=== PATIENT | male | born 1970 | race African-American/Black ===

== ENCOUNTER 2016-10-25 15:29 | Inpatient (IN) | payer OTHER ==
[~2016-10-25] VITALS: Ht 188 cm; Wt 86.6 kg
[~2016-10-25 15:29] MED LIST: SUCR500T PO
[2016-10-25] MEDS ORDERED: ASPIRIN 325MG EC TABLET PO ONE (16:15)
[2016-10-25] MEDS ORDERED: HYDROCODONE/ACETAMINOPHEN 5/325MG TABLET PO ONE (17:00)
[2016-10-25 17:03] LABS: HEMATOCRIT. 33.3 % (42.0-52.0); HEMOGLOBIN. 11.2 g/dL (14.0-18.0); MEAN CORPUSCULAR HEMOGLOBIN 31.5 pg (28.0-32.0); MEAN CORPUSCULAR VOLUME 93.9 fL (80.0-94.0); MEAN PLATELET VOLUME 9.2 fl (7.4-10.4); PLATELET 96 x1000/uL (130-400); RED BLOOD CELL COUNT 3.55 mill/uL (4.7-6.1); RED CELL DISTRIBUTION WIDTH 14.3 % (11.6-14.6)
[2016-10-25 17:05] LABS: CHLORIDE 97 mEq/L (98-107)
[2016-10-25 17:14] LABS: CARBON DIOXIDE 27 mEq/L (21-32)
[2016-10-25 17:18] LABS: TROPONIN I 0.02 ng/mL (0.00-0.04)
[2016-10-25 17:27] LABS: INR 1.1
[2016-10-25 17:37] LABS: PLATELET ESTIMATE DECREASED
[2016-10-25] MEDS ORDERED: MORPHINE SULFATE 4 MG/ML CPJ (NOT FOR IM USE) IV ONE (18:45)
[2016-10-25 21:15] VITALS: BP 182/100
[2016-10-25] MEDS ORDERED: ZOLPIDEM TARTRATE 5MG TABLET PO PRN (21:45)
[2016-10-25] MEDS ORDERED: AZITHROMYCIN 500 MG TABLET PO ONE (21:45)
[2016-10-25] MEDS ORDERED: LISI-604 PO (22:08)
[2016-10-25] MEDS ORDERED: HYDR100T26 PO (22:08)
[2016-10-25] MEDS ORDERED: METO50TA5 PO (22:08)
[2016-10-25] MEDS ORDERED: VARE1TAB21 PO (22:08)
[2016-10-25] MEDS: CLONIDINE 0.1MG TABLET PO PRN (23:56)
[2016-10-25] MEDS: ACETAMINOPHEN 325MG TABLET PO PRN (23:58)
[2016-10-26] VITALS (7 sets, daily range): BP systolic 161–179; BP diastolic 88–104
[2016-10-26] MEDS: AZITHROMYCIN 500 MG in DEXT 5% WATER 250 ML IV SCH (01:06)
[2016-10-26 01:22] LABS: CREATINE KINASE 86 IU/L (39-308); CREATINE KINASE MB FRACTION 0.7 ng/mL (0.5-3.6); TROPONIN I < 0.02 ng/mL (0.00-0.04)
[2016-10-26] MEDS: CEFTRIAXONE 1 G PREMIX 50 ML IV SCH (02:03)
[2016-10-26] MEDS: HYDROMORPHONE HCL/PF 2MG/ML CPJ IV PRN ×3 (05:23→09:38)
[2016-10-26] MEDS ORDERED: METOPROLOL TARTRATE 50MG TABLET PO SCH (09:00)
[2016-10-26] MEDS ORDERED: LISINOPRIL 20MG TABLET PO SCH (09:00)
[2016-10-26] MEDS: LISINOPRIL 20MG TABLET PO SCH ×2 (09:38→17:29)
[2016-10-26] MEDS: HYDRALAZINE HCL 100MG TABLET PO SCH ×3 (09:38→21:04)
[2016-10-26] MEDS: METOPROLOL TARTRATE 50MG TABLET PO SCH ×2 (09:38→21:03)
[2016-10-26] MEDS: ENOXAPARIN 30MG/0.3ML SYR SUBCUT SCH (09:39)
[2016-10-26 11:02] LABS: CREATINE KINASE 64 IU/L (39-308); CREATINE KINASE MB FRACTION 0.7 ng/mL (0.5-3.6); TROPONIN I < 0.02 ng/mL (0.00-0.04)
[2016-10-26 12:37] LABS: HEMATOCRIT. 35.6 % (42.0-52.0); HEMOGLOBIN. 11.8 g/dL (14.0-18.0); MEAN CORPUSCULAR HEMOGLOBIN 31.4 pg (28.0-32.0); MEAN CORPUSCULAR VOLUME 94.9 fL (80.0-94.0); MEAN PLATELET VOLUME 9.5 fl (7.4-10.4); PLATELET 97 x1000/uL (130-400); RED BLOOD CELL COUNT 3.76 mill/uL (4.7-6.1); RED CELL DISTRIBUTION WIDTH 14.2 % (11.6-14.6)
[2016-10-26 12:41] LABS: CARBON DIOXIDE 29 mEq/L (21-32); CHLORIDE 97 mEq/L (98-107)
[2016-10-26] MEDS: CLONIDINE 0.1MG TABLET PO SCH ×2 (14:04→21:04)
[2016-10-26] MEDS: CLONIDINE 0.1MG TABLET PO PRN (15:30)
[2016-10-26 17:57] LABS: PLATELET ESTIMATE DECREASED
[2016-10-26] MEDS: ACETAMINOPHEN 325MG TABLET PO PRN (21:04)
[2016-10-27] VITALS (7 sets, daily range): BP systolic 136–178; BP diastolic 73–95
[2016-10-27] MEDS: AZITHROMYCIN 500 MG in DEXT 5% WATER 250 ML IV SCH (01:19)
[2016-10-27] MEDS: CEFTRIAXONE 1 G PREMIX 50 ML IV SCH (02:41)
[2016-10-27] MEDS: HYDRALAZINE HCL 100MG TABLET PO SCH ×3 (05:25→21:35)
[2016-10-27] MEDS: CLONIDINE 0.1MG TABLET PO SCH ×3 (05:25→21:35)
[2016-10-27] MEDS: ACETAMINOPHEN 325MG TABLET PO PRN (05:26)
[2016-10-27 06:47] LABS: HEMATOCRIT. 30.9 % (42.0-52.0); HEMOGLOBIN. 10.4 g/dL (14.0-18.0); MEAN CORPUSCULAR HEMOGLOBIN 31.5 pg (28.0-32.0); MEAN CORPUSCULAR VOLUME 93.9 fL (80.0-94.0); MEAN PLATELET VOLUME 9.5 fl (7.4-10.4); PLATELET 94 x1000/uL (130-400); RED BLOOD CELL COUNT 3.29 mill/uL (4.7-6.1); RED CELL DISTRIBUTION WIDTH 14.1 % (11.6-14.6)
[2016-10-27 08:48] LABS: CARBON DIOXIDE 27 mEq/L (21-32); CHLORIDE 97 mEq/L (98-107); PHOSPHORUS 4.5 mg/dL (2.5-4.9); TROPONIN I < 0.02 ng/mL (0.00-0.04)
[2016-10-27] MEDS: METOPROLOL TARTRATE 50MG TABLET PO SCH ×2 (09:00→21:35)
[2016-10-27] MEDS: LISINOPRIL 20MG TABLET PO SCH ×2 (09:00→17:22)
[2016-10-27] MEDS: ENOXAPARIN 30MG/0.3ML SYR SUBCUT SCH (09:00)
[2016-10-27] MEDS: HYDROMORPHONE HCL/PF 2MG/ML CPJ IV PRN ×2 (10:26→16:00)
[2016-10-27 13:50] LABS: PLATELET ESTIMATE DECREASED
[2016-10-27] MEDS: CLONIDINE 0.1MG TABLET PO PRN (17:23)
[2016-10-27] MEDS: GUAIFENESIN 600MG ER TABLET PO SCH (21:35)
[2016-10-28] VITALS: BP 156/89
[2016-10-28] MEDS: AZITHROMYCIN 500 MG in DEXT 5% WATER 250 ML IV SCH ×2 (01:34→23:10)
[2016-10-28] MEDS: CEFTRIAXONE 1 G PREMIX 50 ML IV SCH (02:03)
[2016-10-28] MEDS: HYDROMORPHONE HCL/PF 2MG/ML CPJ IV PRN (02:06)
[2016-10-28 04:00] VITALS: BP 149/82
[2016-10-28] MEDS: CLONIDINE 0.1MG TABLET PO SCH ×3 (06:10→22:00)
[2016-10-28] MEDS: HYDRALAZINE HCL 100MG TABLET PO SCH ×3 (06:10→22:00)
[2016-10-28 07:10] LABS: BASOPHILS % 0.6 % (0.0-2.0); EOSINOPHILS % 3.1 % (0.0-5.0); HEMATOCRIT. 31.7 % (42.0-52.0); HEMOGLOBIN. 10.6 g/dL (14.0-18.0); LYMPHOCYTES % 9.1 % (20.0-50.0); MEAN CORPUSCULAR HEMOGLOBIN 31.6 pg (28.0-32.0); MEAN CORPUSCULAR VOLUME 94.5 fL (80.0-94.0); MEAN PLATELET VOLUME 9.3 fl (7.4-10.4); MONOCYTES % 12.5 % (2.0-8.0); NEUTROPHILS % 74.7 % (40.0-76.0); PLATELET 102 x1000/uL (130-400); RED BLOOD CELL COUNT 3.35 mill/uL (4.7-6.1); RED CELL DISTRIBUTION WIDTH 14.2 % (11.6-14.6)
[2016-10-28] MEDS: ENOXAPARIN 30MG/0.3ML SYR SUBCUT SCH ×2 (09:00→09:28)
[2016-10-28] MEDS: GUAIFENESIN 600MG ER TABLET PO SCH ×2 (09:27→21:00)
[2016-10-28] MEDS: ACETAMINOPHEN 325MG TABLET PO PRN (09:27)
[2016-10-28] MEDS: LISINOPRIL 20MG TABLET PO SCH ×2 (09:27→16:49)
[2016-10-28] MEDS: METOPROLOL TARTRATE 50MG TABLET PO SCH ×2 (09:27→21:00)
[2016-10-28 12:00] VITALS: BP 150/89
[2016-10-28] MEDS: IPRATROPIUM/ALBUTEROL 0.5-3(2.5)MG/3ML NEB HHN PRN ×2 (12:29→20:09)
[2016-10-28 16:00] VITALS: BP 147/82
[2016-10-28] MEDS: METRONIDAZOLE 500MG TABLET PO SCH ×2 (16:50→23:10)
[2016-10-28] MEDS ORDERED: VANCOMYCIN 2,000 MG in DEXT 5% WATER 500 ML IV NR (18:00)
[2016-10-28 20:00] VITALS: BP 180/90
[2016-10-28 23:31] VITALS: BP 119/80
[2016-10-28] MEDS ORDERED: DIPHENHYDRAMINE 50MG/ML VIAL IV PRN (23:45)
[2016-10-29] MEDS: CEFTRIAXONE 1 G PREMIX 50 ML IV SCH (02:18)
[2016-10-29] MEDS: HYDROMORPHONE HCL/PF 2MG/ML CPJ IV PRN (02:31)
[2016-10-29 04:00] VITALS: BP 150/87
[2016-10-29] MEDS: CLONIDINE 0.1MG TABLET PO SCH ×3 (04:45→20:17)
[2016-10-29] MEDS: HYDRALAZINE HCL 100MG TABLET PO SCH ×3 (04:45→20:18)
[2016-10-29 08:00] VITALS: BP 158/90
[2016-10-29 08:03] LABS: BASOPHILS % 0.8 % (0.0-2.0); EOSINOPHILS % 6.2 % (0.0-5.0); HEMATOCRIT. 29.1 % (42.0-52.0); HEMOGLOBIN. 9.8 g/dL (14.0-18.0); MEAN CORPUSCULAR HEMOGLOBIN 31.5 pg (28.0-32.0); MEAN CORPUSCULAR VOLUME 93.3 fL (80.0-94.0); MEAN PLATELET VOLUME 9.5 fl (7.4-10.4); MONOCYTES % 11.2 % (2.0-8.0); NEUTROPHILS % 68.8 % (40.0-76.0); PLATELET 99 x1000/uL (130-400); RED BLOOD CELL COUNT 3.12 mill/uL (4.7-6.1); RED CELL DISTRIBUTION WIDTH 13.9 % (11.6-14.6)
[2016-10-29] MEDS: ENOXAPARIN 30MG/0.3ML SYR SUBCUT SCH (09:00)
[2016-10-29] MEDS: ACETAMINOPHEN 325MG TABLET PO PRN (09:27)
[2016-10-29] MEDS: GUAIFENESIN 600MG ER TABLET PO SCH ×2 (09:27→20:18)
[2016-10-29] MEDS: METRONIDAZOLE 500MG TABLET PO SCH ×2 (09:27→16:34)
[2016-10-29] MEDS: LISINOPRIL 20MG TABLET PO SCH ×2 (09:27→16:34)
[2016-10-29] MEDS: METOPROLOL TARTRATE 50MG TABLET PO SCH ×2 (09:28→20:17)
[2016-10-29 12:00] VITALS: BP 158/89
[2016-10-29 16:00] VITALS: BP 173/93
[2016-10-29] MEDS: IPRATROPIUM/ALBUTEROL 0.5-3(2.5)MG/3ML NEB HHN PRN (17:45)
[2016-10-29] MEDS: FLUCONAZOLE 200 MG/100ML BAG 100 ML IV SCH (18:14)
[2016-10-29 20:00] VITALS: BP 172/90
[2016-10-30] MEDS: METRONIDAZOLE 500MG TABLET PO SCH ×3 (01:37→16:23)
[2016-10-30] MEDS: CEFTRIAXONE 1 G PREMIX 50 ML IV SCH (01:37)
[2016-10-30] MEDS: IPRATROPIUM/ALBUTEROL 0.5-3(2.5)MG/3ML NEB HHN PRN (02:41)
[2016-10-30] MEDS: HYDROMORPHONE HCL/PF 2MG/ML CPJ IV PRN ×2 (03:45→16:29)
[2016-10-30] MEDS: CLONIDINE 0.1MG TABLET PO SCH ×2 (06:00→14:00)
[2016-10-30] MEDS: HYDRALAZINE HCL 100MG TABLET PO SCH ×3 (06:00→21:58)
[2016-10-30 07:32] LABS: BASOPHILS % 0.6 % (0.0-2.0); EOSINOPHILS % 5.1 % (0.0-5.0); HEMOGLOBIN. 10.8 g/dL (14.0-18.0); LYMPHOCYTES % 10.1 % (20.0-50.0); MEAN CORPUSCULAR HEMOGLOBIN 31.1 pg (28.0-32.0); MEAN CORPUSCULAR VOLUME 92.1 fL (80.0-94.0); MEAN PLATELET VOLUME 9.3 fl (7.4-10.4); MONOCYTES % 10.1 % (2.0-8.0); NEUTROPHILS % 74.1 % (40.0-76.0); PLATELET 131 x1000/uL (130-400); RED BLOOD CELL COUNT 3.48 mill/uL (4.7-6.1)
[2016-10-30 08:00] VITALS: BP 166/94
[2016-10-30] MEDS: METOPROLOL TARTRATE 50MG TABLET PO SCH ×2 (09:25→21:58)
[2016-10-30] MEDS: LISINOPRIL 20MG TABLET PO SCH ×2 (09:25→16:25)
[2016-10-30] MEDS: GUAIFENESIN 600MG ER TABLET PO SCH ×2 (09:26→21:58)
[2016-10-30] MEDS: ENOXAPARIN 30MG/0.3ML SYR SUBCUT SCH (09:27)
[2016-10-30] MEDS: AMLODIPINE 5MG TABLET PO SCH (09:30)
[2016-10-30] MEDS ORDERED: FUROSEMIDE 40MG/4ML VIAL IVP NR (10:45)
[2016-10-30] MEDS ORDERED: ALPRAZOLAM 0.5 MG TABLET PO PRN (10:45)
[2016-10-30] MEDS ORDERED: VANCOMYCIN 1 G PREMIX 200 ML IV SCH (11:00)
[2016-10-30 12:00] VITALS: BP 148/87
[2016-10-30 16:00] VITALS: BP 153/89
[2016-10-30] MEDS: FLUCONAZOLE 200 MG/100ML BAG 100 ML IV SCH (16:25)
[2016-10-30 20:00] VITALS: BP 150/91
[2016-10-30] MEDS: ACETAMINOPHEN 325MG TABLET PO PRN (22:00)
[2016-10-31] VITALS: BP 160/88
[2016-10-31] MEDS: METRONIDAZOLE 500MG TABLET PO SCH ×4 (00:02→23:57)
[2016-10-31] MEDS: CEFTRIAXONE 1 G PREMIX 50 ML IV SCH (02:05)
[2016-10-31 04:00] VITALS: BP 183/103
[2016-10-31] MEDS: CLONIDINE 0.1MG TABLET PO PRN (04:43)
[2016-10-31] MEDS: CLONIDINE 0.1MG TABLET PO SCH ×5 (06:00→21:35)
[2016-10-31 06:59] LABS: BASOPHILS % 1.1 % (0.0-2.0); EOSINOPHILS % 7.3 % (0.0-5.0); HEMOGLOBIN. 10.8 g/dL (14.0-18.0); LYMPHOCYTES % 10.6 % (20.0-50.0); MEAN CORPUSCULAR HEMOGLOBIN 31.4 pg (28.0-32.0); MEAN CORPUSCULAR VOLUME 92.9 fL (80.0-94.0); MEAN PLATELET VOLUME 9.1 fl (7.4-10.4); PLATELET 158 x1000/uL (130-400); RED BLOOD CELL COUNT 3.45 mill/uL (4.7-6.1); RED CELL DISTRIBUTION WIDTH 13.9 % (11.6-14.6)
[2016-10-31] MEDS: HYDRALAZINE HCL 100MG TABLET PO SCH ×3 (07:02→21:36)
[2016-10-31 08:00] VITALS: BP 163/90
[2016-10-31] MEDS: GUAIFENESIN 600MG ER TABLET PO SCH ×2 (08:56→21:36)
[2016-10-31] MEDS: METOPROLOL TARTRATE 50MG TABLET PO SCH ×2 (08:56→21:35)
[2016-10-31] MEDS: FUROSEMIDE 40MG/4ML VIAL IVP SCH ×2 (08:57→11:46)
[2016-10-31] MEDS: LISINOPRIL 20MG TABLET PO SCH ×2 (08:57→17:24)
[2016-10-31] MEDS: AMLODIPINE 5MG TABLET PO SCH (08:57)
[2016-10-31] MEDS: ENOXAPARIN 30MG/0.3ML SYR SUBCUT SCH (08:58)
[2016-10-31] MEDS ORDERED: FUROSEMIDE 40MG/4ML VIAL IVP SCH (09:45)
[2016-10-31 12:00] VITALS: BP 149/83
[2016-10-31 16:00] VITALS: BP 184/102
[2016-10-31] MEDS: FLUCONAZOLE 200 MG/100ML BAG 100 ML IV SCH (17:25)
[2016-10-31 20:00] VITALS: BP 168/102
[2016-11-01] VITALS: BP 135/84
[2016-11-01] MEDS: CEFTRIAXONE 1 G PREMIX 50 ML IV SCH (02:05)
[2016-11-01] MEDS: HYDROCODONE/ACETAMINOPHEN 5/325MG TABLET PO PRN ×2 (03:05→11:29)
[2016-11-01 04:00] VITALS: BP 160/96
[2016-11-01 05:38] LABS: BASOPHILS % 1.2 % (0.0-2.0); EOSINOPHILS % 8.4 % (0.0-5.0); HEMATOCRIT. 31.3 % (42.0-52.0); HEMOGLOBIN. 10.6 g/dL (14.0-18.0); LYMPHOCYTES % 14.6 % (20.0-50.0); MEAN CORPUSCULAR HEMOGLOBIN 31.4 pg (28.0-32.0); MEAN CORPUSCULAR VOLUME 93.2 fL (80.0-94.0); MEAN PLATELET VOLUME 8.6 fl (7.4-10.4); MONOCYTES % 11.4 % (2.0-8.0); NEUTROPHILS % 64.4 % (40.0-76.0); PLATELET 184 x1000/uL (130-400); RED BLOOD CELL COUNT 3.36 mill/uL (4.7-6.1); RED CELL DISTRIBUTION WIDTH 13.9 % (11.6-14.6)
[2016-11-01] MEDS: CLONIDINE 0.1MG TABLET PO SCH ×3 (06:00→21:33)
[2016-11-01] MEDS: HYDRALAZINE HCL 100MG TABLET PO SCH ×3 (06:00→21:33)
[2016-11-01 08:00] VITALS: BP 169/88
[2016-11-01] MEDS: METOPROLOL TARTRATE 50MG TABLET PO SCH ×2 (09:00→21:33)
[2016-11-01] MEDS: AMLODIPINE 5MG TABLET PO SCH ×2 (09:00→19:05)
[2016-11-01] MEDS ORDERED: FUROSEMIDE 40MG/4ML VIAL IVP SCH (09:00)
[2016-11-01] MEDS: LISINOPRIL 20MG TABLET PO SCH ×2 (09:00→19:04)
[2016-11-01] MEDS ORDERED: ENOXAPARIN 40MG/0.4ML SYR SUBCUT SCH (09:00)
[2016-11-01] MEDS: FUROSEMIDE 40MG/4ML VIAL IVP SCH (09:43)
[2016-11-01] MEDS: METRONIDAZOLE 500MG TABLET PO SCH ×2 (09:44→15:02)
[2016-11-01] MEDS: GUAIFENESIN 600MG ER TABLET PO SCH ×2 (09:44→21:33)
[2016-11-01] MEDS ORDERED: CLONIDINE 0.2MG TABLET PO PRN (11:30)
[2016-11-01] MEDS ORDERED: CLONIDINE 0.1MG TABLET PO PRN (11:30)
[2016-11-01 12:00] VITALS: BP 170/80
[2016-11-01] MEDS: IPRATROPIUM/ALBUTEROL 0.5-3(2.5)MG/3ML NEB HHN PRN (14:07)
[2016-11-01] MEDS: ACETAMINOPHEN 325MG TABLET PO PRN (15:02)
[2016-11-01] MEDS: FLUCONAZOLE 200 MG/100ML BAG 100 ML IV SCH (15:03)
[2016-11-01 16:00] VITALS: BP 136/78
[2016-11-01] MEDS ORDERED: MORPHINE SULFATE 4 MG/ML CPJ (NOT FOR IM USE) IV PRN (19:45)
[2016-11-01 20:08] VITALS: BP 148/88
[2016-11-02] VITALS: BP 151/92
[2016-11-02] MEDS: METRONIDAZOLE 500MG TABLET PO SCH ×2 (00:09→10:02)
[2016-11-02] MEDS: CEFTRIAXONE 1 G PREMIX 50 ML IV SCH (01:59)
[2016-11-02 04:00] VITALS: BP 145/97
[2016-11-02] MEDS: HYDRALAZINE HCL 100MG TABLET PO SCH ×2 (06:14→14:48)
[2016-11-02] MEDS: CLONIDINE 0.1MG TABLET PO SCH ×2 (06:14→14:48)
[2016-11-02 07:45] VITALS: BP 141/85
[2016-11-02] MEDS: FUROSEMIDE 40MG/4ML VIAL IVP SCH (09:00)
[2016-11-02 09:55] VITALS: BP 139/83
[2016-11-02] MEDS: GUAIFENESIN 600MG ER TABLET PO SCH (10:02)
[2016-11-02] MEDS: AMLODIPINE 5MG TABLET PO SCH (10:03)
[2016-11-02] MEDS: LISINOPRIL 20MG TABLET PO SCH (10:03)
[2016-11-02] MEDS: METOPROLOL TARTRATE 50MG TABLET PO SCH (10:04)
[2016-11-02 12:00] VITALS: BP 149/87
[2016-11-02] MEDS ORDERED: SODIUM BICARBONATE 4% (2.4MEQ) 5ML VIAL IV ONE (14:11)
[2016-11-02 15:04] VITALS: BP 156/91
[2016-11-04 15:12] LABS: HISTOPLASMA ABS QT DID Negative (Neg:<1:1)
== END 2016-11-02 15:33 | disposition home or self-care (01) | DRG 871 ==
LOC: ER 16:16 → 7WST 19:00 → EDBEDREQ 19:02 → EDBEDREQSVC 19:02 → CANRESERV 19:23 → EDBEDREQSVC 19:23 → ENRESERV 19:23 → EDBEDREQSVC 19:24 → ENRESERV 19:34
PROVIDERS: ADMIT Internal Medicine Nephrology; ATTEND Internal Medicine Nephrology
PROC: 5A1D60Z (ICD-10-PCS; principal; 2016-10-26)
PROC: 0W993ZZ Drainage of Right Pleural Cavity, Percutaneous Approach (ICD-10-PCS; 2016-11-02)
DX: A41.9 Sepsis, unspecified organism (principal); J96.00 Acute respiratory failure, unspecified whether with hypoxia or hypercapnia; I13.2 Hypertensive heart and chronic kidney disease with heart failure and with stage 5 chronic kidney disease, or end stage renal disease; J90 Pleural effusion, not elsewhere classified; N18.6 End stage renal disease; I42.9 Cardiomyopathy, unspecified; J18.1 Lobar pneumonia, unspecified organism; E11.22 Type 2 diabetes mellitus with diabetic chronic kidney disease; F17.210 Nicotine dependence, cigarettes, uncomplicated; I50.9 Heart failure, unspecified; Z99.2 Dependence on renal dialysis; Z79.899 Other long term (current) drug therapy
CPT/HCPCS: 32555; 36415; 71010; 71020; 71250; 76604; 80048; 80053; 80202; 82550; 82553; 82945; 83036; 83615; 83735; 83880; 84100; 84157; 84484; 85025; 85610; 85651; 86635; 86698; 86703; 87040; 87070; 87102; 87106; 87116; 87205; 87804; 89050; 93005; 93306; 94640; 94664; 96374; 99285; J0456; J0696; J1170; J1200; J1450; J1650; J1940; J2270; J3370; J3490; J7030; J7040; J7050; J7060; J7620

== ENCOUNTER 2017-01-29 13:27 | Emergency (ER) | payer MEDICARE, OTHER ==
[~2017-01-29] VITALS: Ht 188 cm; Wt 89.0 kg
[~2017-01-29 13:27] MED LIST changes: +HYDR100T26 PO; +LISI-604 PO; +METO-539 PO; +VARE1TAB21 PO
[2017-01-29 14:24] LABS: BASOPHILS % 1.6 % (0.0-2.0); EOSINOPHILS % 9.5 % (0.0-5.0); HEMATOCRIT. 36.4 % (42.0-52.0); HEMOGLOBIN. 12.6 g/dL (14.0-18.0); LYMPHOCYTES % 30.5 % (20.0-50.0); MEAN CORPUSCULAR HEMOGLOBIN 33.2 pg (28.0-32.0); MEAN CORPUSCULAR VOLUME 95.9 fL (80.0-94.0); MEAN PLATELET VOLUME 8.7 fl (7.4-10.4); MONOCYTES % 7.7 % (2.0-8.0); NEUTROPHILS % 50.7 % (40.0-76.0); PLATELET 159 x1000/uL (130-400); RED CELL DISTRIBUTION WIDTH 13.3 % (11.6-14.6)
[2017-01-29 14:26] LABS: PROTHROMBIN TIME 10.7 sec (9.4-11.6)
[2017-01-29 14:39] LABS: CARBON DIOXIDE 31 mEq/L (21-32); CHLORIDE 99 mEq/L (98-107); TROPONIN I 0.02 ng/mL (0.00-0.04)
[2017-01-29] MEDS ORDERED: IOHEXOL-350 100 ML BOTTLE ONE (15:03)
[2017-01-29 16:20] VITALS: BP 145/68
== END 2017-01-29 16:42 | disposition home or self-care (01) ==
LOC: ER 14:10
DX: R06.02 Shortness of breath (principal); I12.0 Hypertensive chronic kidney disease with stage 5 chronic kidney disease or end stage renal disease; N18.6 End stage renal disease; Z87.891 Personal history of nicotine dependence; Z99.2 Dependence on renal dialysis; Z87.01 Personal history of pneumonia (recurrent)
CPT/HCPCS: 36415; 71010; 71275; 80053; 83735; 83880; 84484; 85025; 85610; 93005; 99285; Q9967

== ENCOUNTER 2017-05-13 18:07 | Inpatient (IN) | payer BC, MEDICARE, OTHER ==
[~2017-05-13] VITALS: Ht 188 cm; Wt 95.3 kg
[2017-05-13 19:31] LABS: PROTHROMBIN TIME 10.7 sec (9.4-11.6)
[2017-05-13 19:32] LABS: BASOPHILS % 1.1 % (0.0-2.0); CHLORIDE 103 mEq/L (98-107); EOSINOPHILS % 6.6 % (0.0-5.0); HEMATOCRIT. 35.6 % (42.0-52.0); HEMOGLOBIN. 12.3 g/dL (14.0-18.0); MEAN CORPUSCULAR HEMOGLOBIN 33.4 pg (28.0-32.0); MEAN CORPUSCULAR VOLUME 96.9 fL (80.0-94.0); MEAN PLATELET VOLUME 7.7 fl (7.4-10.4); MONOCYTES % 7.5 % (2.0-8.0); NEUTROPHILS % 63.8 % (40.0-76.0); PLATELET 151 x1000/uL (130-400); RED BLOOD CELL COUNT 3.68 mill/uL (4.7-6.1); RED CELL DISTRIBUTION WIDTH 14.9 % (11.6-14.6)
[2017-05-13 23:30] VITALS: BP 134/81
[2017-05-13] MEDS ORDERED: ONDANSETRON HCL 4MG/2ML VIAL IV PRN (23:30)
[2017-05-13] MEDS ORDERED: ALPRAZOLAM 0.5 MG TABLET PO PRN (23:30)
[2017-05-13] MEDS ORDERED: ACETAMINOPHEN 325MG TABLET PO PRN (23:30)
[2017-05-13] MEDS ORDERED: HYDROMORPHONE HCL/PF 2MG/ML CPJ IV PRN (23:30)
[2017-05-13] MEDS ORDERED: LORAZEPAM 0.5MG TABLET PO PRN (23:30)
[2017-05-13 23:50] VITALS: BP 133/81
[2017-05-14] MEDS ORDERED: CLON1PAT11 TD (01:17)
[2017-05-14 04:00] VITALS: BP 143/83
[2017-05-14 07:46] VITALS: BP 120/63
[2017-05-14] MEDS ORDERED: ENOXAPARIN 30MG/0.3ML SYR SUBCUT SCH (09:00)
[2017-05-14 09:36] VITALS: BP 120/63
[2017-05-20] MEDS ORDERED: CLONIDINE HCL 0.2MG/24HR PATCH TD SCH (09:00)
== END 2017-05-14 10:31 | disposition home or self-care (01) | DRG 291 ==
LOC: ER 18:33 → 8WST 21:29 → EDBEDREQ 21:40 → EDBEDREQTM 21:40 → ENRESERV 22:24
PROVIDERS: ADMIT Internal Medicine Nephrology; ATTEND Internal Medicine Nephrology
PROC: 5A1D70Z Performance of Urinary Filtration, Intermittent, Less than 6 Hours Per Day (ICD-10-PCS; principal; 2017-05-13)
DX: I13.2 Hypertensive heart and chronic kidney disease with heart failure and with stage 5 chronic kidney disease, or end stage renal disease (principal); I50.31 Acute diastolic (congestive) heart failure; E44.1 Mild protein-calorie malnutrition; N18.6 End stage renal disease; F41.1 Generalized anxiety disorder; J44.9 Chronic obstructive pulmonary disease, unspecified; Z99.2 Dependence on renal dialysis; Z79.899 Other long term (current) drug therapy; Z68.27 Body mass index [BMI] 27.0-27.9, adult
CPT/HCPCS: 36415; 71045; 80053; 83880; 84484; 85025; 85610; 93005; J1650

== ENCOUNTER 2017-09-22 23:06 | Inpatient (IN) | payer OTHER ==
[~2017-09-22] VITALS: Ht 370.8 cm; Wt 100.7 kg
[~2017-09-22 23:06] MED LIST changes: +CLON1PAT11 TD
[2017-09-23 01:22] LABS: BASOPHILS % 1.1 % (0.0-2.0); HEMATOCRIT. 38.1 % (42.0-52.0); HEMOGLOBIN. 12.8 g/dL (14.0-18.0); MEAN CORPUSCULAR HEMOGLOBIN 33.8 pg (28.0-32.0); MEAN CORPUSCULAR VOLUME 100.3 fL (80.0-94.0); MEAN PLATELET VOLUME 7.9 fl (7.4-10.4); MONOCYTES % 7.8 % (2.0-8.0); NEUTROPHILS % 54.1 % (40.0-76.0); PLATELET 124 x1000/uL (130-400); RED BLOOD CELL COUNT 3.79 mill/uL (4.7-6.1); RED CELL DISTRIBUTION WIDTH 14.3 % (11.6-14.6)
[2017-09-23 01:24] LABS: CHLORIDE 99 mEq/L (98-107)
[2017-09-23 01:26] LABS: PROTHROMBIN TIME 10.7 sec (9.4-11.6)
[2017-09-23] MEDS ORDERED: MORPHINE SULFATE 4 MG/ML CPJ (NOT FOR IM USE) IV PRN (09:00)
[2017-09-23] MEDS ORDERED: CLONIDINE 0.1MG TABLET PO PRN (09:00)
[2017-09-23] MEDS ORDERED: METOPROLOL TARTRATE 50MG TABLET PO SCH (09:00)
[2017-09-23] MEDS ORDERED: HYDROCODONE/ACETAMINOPHEN 5/325MG TABLET PO PRN (09:00)
[2017-09-23] MEDS ORDERED: LISINOPRIL 20MG TABLET PO SCH (09:00)
[2017-09-23] MEDS ORDERED: DIPHENHYDRAMINE 50MG/ML VIAL IV PRN (09:00)
[2017-09-23 09:37] VITALS: BP 142/85
[2017-09-23 12:23] VITALS: BP 142/85
[2017-09-23 12:55] LABS: HEMATOCRIT 40.4 % (42.0-52.0); HEMOGLOBIN 13.6 g/dL (14.0-18.0)
[2017-09-23] MEDS ORDERED: HYDRALAZINE HCL 100MG TABLET PO SCH (14:00)
== END 2017-09-23 14:01 | disposition home or self-care (01) | DRG 314 ==
LOC: ER 23:06 → 6WST 09-23 01:10 → ENRESERV 09-23 07:16
PROVIDERS: ADMIT Internal Medicine Nephrology; ATTEND Internal Medicine Nephrology
DX: T82.838A Hemorrhage due to vascular prosthetic devices, implants and grafts, initial encounter (principal); N18.6 End stage renal disease; I12.0 Hypertensive chronic kidney disease with stage 5 chronic kidney disease or end stage renal disease; Y84.1 Kidney dialysis as the cause of abnormal reaction of the patient, or of later complication, without mention of misadventure at the time of the procedure; D64.9 Anemia, unspecified; I25.10 Atherosclerotic heart disease of native coronary artery without angina pectoris; J44.9 Chronic obstructive pulmonary disease, unspecified; Z99.2 Dependence on renal dialysis; Z79.899 Other long term (current) drug therapy; Y92.89 Other specified places as the place of occurrence of the external cause
CPT/HCPCS: 36415; 80053; 85014; 85018; 85025; 85610; 99285

== ENCOUNTER 2018-04-24 19:12 | Inpatient (IN) | payer MEDICARE, OTHER ==
[~2018-04-24] VITALS: Ht 188 cm; Wt 104.3 kg
[~2018-04-24 19:12] MED LIST changes: -CLON1PAT11 TD; -LISI-604 PO; -METO-539 PO
[2018-04-24] MEDS ORDERED: ASPIRIN 81MG TABLET PO ONE (23:30)
[2018-04-25 00:13] LABS: CHLORIDE 104 mEq/L (98-107)
[2018-04-25] MEDS ORDERED: MAGNESIUM/ALUMINUM HYDROXIDE/SIMETHICONE 30ML UDC PO PRN (00:15)
[2018-04-25] MEDS ORDERED: CLONIDINE 0.1MG TABLET PO PRN (00:15)
[2018-04-25] MEDS ORDERED: MORPHINE SULFATE 4 MG/ML CPJ (NOT FOR IM USE) IV PRN (00:15)
[2018-04-25] MEDS ORDERED: IPRATROPIUM/ALBUTEROL 0.5-3(2.5)MG/3ML NEB INH PRN (00:15)
[2018-04-25] MEDS ORDERED: HYDROCODONE/ACETAMINOPHEN 5/325MG TABLET PO PRN (00:15)
[2018-04-25 00:16] LABS: EOSINOPHILS % 8.6 % (0.0-5.0); HEMATOCRIT. 31.8 % (42.0-52.0); HEMOGLOBIN. 10.5 g/dL (14.0-18.0); LYMPHOCYTES % 19.2 % (20.0-50.0); MEAN CORPUSCULAR HEMOGLOBIN 31.4 pg (28.0-32.0); MEAN PLATELET VOLUME 7.5 fl (7.4-10.4); MONOCYTES % 8.1 % (2.0-8.0); NEUTROPHILS % 63.1 % (40.0-76.0); PLATELET 151 x1000/uL (130-400); RED BLOOD CELL COUNT 3.34 mill/uL (4.7-6.1); RED CELL DISTRIBUTION WIDTH 16.1 % (11.6-14.6)
[2018-04-25 09:48] VITALS: BP 153/84
[2018-04-25] MEDS ORDERED: ESCI20TA36 PO (11:07)
[2018-04-25] MEDS ORDERED: SEVE800T8 PO (11:07)
[2018-04-25] MEDS ORDERED: MINO2.5T2 PO (11:07)
[2018-04-25] MEDS ORDERED: DIAZ5TAB4 PO (11:07)
[2018-04-25] MEDS ORDERED: CLON0.1T PO (11:07)
[2018-04-25] MEDS ORDERED: HYDR-4001 PO (11:07)
[2018-04-25] MEDS ORDERED: HYDR-4135 PO (11:07)
[2018-04-25 13:12] VITALS: BP 153/87
[2018-04-25] MEDS ORDERED: ASPIRIN 81MG EC TABLET PO SCH (13:30)
[2018-04-25] MEDS ORDERED: METHYLPREDNISOLONE SOD SUCC 125 MG/2 ML VIAL IV SCH (14:00)
[2018-04-25] MEDS ORDERED: CEFTRIAXONE 1 G PREMIX 50 ML IV SCH (14:30)
[2018-04-25 16:00] VITALS: BP 170/92
[2018-04-25] MEDS: FOLIC ACID 1MG TABLET PO SCH (16:18)
[2018-04-25] MEDS: CEFTRIAXONE 1,000 MG in DEXTROSE 5% WATER 50 ML IV SCH (16:19)
[2018-04-25] MEDS: ENOXAPARIN 30MG/0.3ML SYR SUBCUT SCH (16:19)
[2018-04-25] MEDS: CLONIDINE 0.1MG TABLET PO SCH ×2 (16:19→22:16)
[2018-04-25] MEDS: AZITHROMYCIN 500 MG in DEXT 5% WATER 250 ML IV SCH (16:20)
[2018-04-25] MEDS: METHYLPREDNISOLONE SOD SUCC 125 MG/2 ML VIAL IV SCH (20:34)
[2018-04-26] VITALS: BP 179/100
[2018-04-26] MEDS: IPRATROPIUM/ALBUTEROL 0.5-3(2.5)MG/3ML NEB HHN SCH ×6 (01:00→21:07)
[2018-04-26] MEDS: METHYLPREDNISOLONE SOD SUCC 125 MG/2 ML VIAL IV SCH ×4 (01:43→20:46)
[2018-04-26 04:00] VITALS: BP 171/100
[2018-04-26] MEDS: CLONIDINE 0.1MG TABLET PO SCH ×3 (05:21→21:36)
[2018-04-26] MEDS: LORAZEPAM 2MG/ML CPJ IV PRN (06:42)
[2018-04-26 08:00] VITALS: BP 157/78
[2018-04-26] MEDS: ASPIRIN 325MG EC TABLET PO SCH (08:55)
[2018-04-26] MEDS: FOLIC ACID 1MG TABLET PO SCH (08:56)
[2018-04-26 12:46] LABS: HEMATOCRIT. 29.2 % (42.0-52.0); HEMOGLOBIN. 9.7 g/dL (14.0-18.0); MEAN CORPUSCULAR HEMOGLOBIN 31.6 pg (28.0-32.0); MEAN CORPUSCULAR VOLUME 94.8 fL (80.0-94.0); PLATELET 148 x1000/uL (130-400); RED BLOOD CELL COUNT 3.08 mill/uL (4.7-6.1); RED CELL DISTRIBUTION WIDTH 15.4 % (11.6-14.6)
[2018-04-26 12:51] LABS: PHOSPHORUS 5.6 mg/dL (2.5-4.9)
[2018-04-26 13:15] LABS: PLATELET ESTIMATE NORMAL
[2018-04-26 16:00] VITALS: BP 140/70
[2018-04-26] MEDS: CEFTRIAXONE 1,000 MG in DEXTROSE 5% WATER 50 ML IV SCH (17:06)
[2018-04-26] MEDS: ENOXAPARIN 30MG/0.3ML SYR SUBCUT SCH (17:06)
[2018-04-26] MEDS: AZITHROMYCIN 500 MG in DEXT 5% WATER 250 ML IV SCH (18:37)
[2018-04-26 20:00] VITALS: BP 152/90
[2018-04-27] VITALS: BP 140/86
[2018-04-27] MEDS: IPRATROPIUM/ALBUTEROL 0.5-3(2.5)MG/3ML NEB HHN SCH ×4 (00:55→22:06)
[2018-04-27] MEDS: METHYLPREDNISOLONE SOD SUCC 125 MG/2 ML VIAL IV SCH ×3 (02:28→22:06)
[2018-04-27 04:00] VITALS: BP 164/99
[2018-04-27] MEDS: CLONIDINE 0.1MG TABLET PO SCH ×3 (05:02→21:30)
[2018-04-27 08:00] VITALS: BP 172/100
[2018-04-27 08:10] LABS: HEMATOCRIT. 30.4 % (42.0-52.0); HEMOGLOBIN. 10.1 g/dL (14.0-18.0); MEAN CORPUSCULAR HEMOGLOBIN 31.8 pg (28.0-32.0); MEAN CORPUSCULAR VOLUME 95.9 fL (80.0-94.0); MEAN PLATELET VOLUME 8.3 fl (7.4-10.4); PLATELET 126 x1000/uL (130-400); RED BLOOD CELL COUNT 3.17 mill/uL (4.7-6.1)
[2018-04-27] MEDS: ASPIRIN 325MG EC TABLET PO SCH (09:41)
[2018-04-27] MEDS: FOLIC ACID 1MG TABLET PO SCH (09:41)
[2018-04-27] MEDS: NICOTINE 14MG PATCH TD SCH (09:43)
[2018-04-27 11:54] VITALS: BP 153/85
[2018-04-27 12:19] LABS: PLATELET ESTIMATE SLIGHTLY DECREASED
[2018-04-27] MEDS: HYDRALAZINE HCL 25MG TABLET PO SCH ×2 (12:24→22:05)
[2018-04-27] MEDS: ENOXAPARIN 30MG/0.3ML SYR SUBCUT SCH (13:05)
[2018-04-27 16:00] VITALS: BP 156/87
[2018-04-27] MEDS: LORAZEPAM 2MG/ML CPJ IV PRN (16:01)
[2018-04-27 20:00] VITALS: BP 135/84
[2018-04-27] MEDS: CEFTRIAXONE 1,000 MG in DEXTROSE 5% WATER 50 ML IV SCH (21:29)
[2018-04-27] MEDS: AZITHROMYCIN 500 MG in DEXT 5% WATER 250 ML IV SCH (22:07)
[2018-04-28] VITALS: BP 129/72
[2018-04-28] MEDS: LORAZEPAM 2MG/ML CPJ IV PRN ×2 (00:09→08:45)
[2018-04-28] MEDS: IPRATROPIUM/ALBUTEROL 0.5-3(2.5)MG/3ML NEB HHN SCH ×5 (01:45→14:18)
[2018-04-28 04:00] VITALS: BP 168/98
[2018-04-28] MEDS: METHYLPREDNISOLONE SOD SUCC 125 MG/2 ML VIAL IV SCH (05:37)
[2018-04-28] MEDS: HYDRALAZINE HCL 25MG TABLET PO SCH (05:38)
[2018-04-28] MEDS: CLONIDINE 0.1MG TABLET PO SCH (05:38)
[2018-04-28 06:25] LABS: HEMATOCRIT. 30.6 % (42.0-52.0); MEAN CORPUSCULAR HEMOGLOBIN 31.2 pg (28.0-32.0); MEAN CORPUSCULAR VOLUME 95.2 fL (80.0-94.0); MEAN PLATELET VOLUME 8.5 fl (7.4-10.4); PLATELET 121 x1000/uL (130-400); RED BLOOD CELL COUNT 3.21 mill/uL (4.7-6.1); RED CELL DISTRIBUTION WIDTH 15.9 % (11.6-14.6)
[2018-04-28 08:00] VITALS: BP 161/95
[2018-04-28] MEDS: ASPIRIN 325MG EC TABLET PO SCH (09:00)
[2018-04-28] MEDS ORDERED: AZITHROMYCIN 500 MG TABLET PO SCH (09:00)
[2018-04-28] MEDS: NICOTINE 14MG PATCH TD SCH (09:00)
[2018-04-28] MEDS: FOLIC ACID 1MG TABLET PO SCH (09:00)
[2018-04-28 12:00] VITALS: BP 160/95
[2018-04-28 13:33] VITALS: BP 148/76
[2018-04-29 06:30] LABS: PLATELET ESTIMATE DECREASED
== END 2018-04-28 15:10 | disposition home or self-care (01) | DRG 291 ==
LOC: ER 19:12 → 8WST 04-25 02:19 → EDBEDREQ 04-25 02:22 → EDBEDREQTM 04-25 02:22 → ENRESERV 04-25 08:06
PROVIDERS: ADMIT Internal Medicine Nephrology; ATTEND Internal Medicine Nephrology
PROC: 5A1D70Z Performance of Urinary Filtration, Intermittent, Less than 6 Hours Per Day (ICD-10-PCS; principal; 2018-04-25)
PROC: 5A1D70Z Performance of Urinary Filtration, Intermittent, Less than 6 Hours Per Day (ICD-10-PCS; 2018-04-27)
PROC: 5A1D70Z Performance of Urinary Filtration, Intermittent, Less than 6 Hours Per Day (ICD-10-PCS; 2018-04-28)
DX: I13.2 Hypertensive heart and chronic kidney disease with heart failure and with stage 5 chronic kidney disease, or end stage renal disease (principal); I50.43 Acute on chronic combined systolic (congestive) and diastolic (congestive) heart failure; N18.6 End stage renal disease; J44.1 Chronic obstructive pulmonary disease with (acute) exacerbation; J44.0 Chronic obstructive pulmonary disease with (acute) lower respiratory infection; J20.9 Acute bronchitis, unspecified; I45.81 Long QT syndrome; D63.8 Anemia in other chronic diseases classified elsewhere; E11.22 Type 2 diabetes mellitus with diabetic chronic kidney disease; E78.00 Pure hypercholesterolemia, unspecified; F32.9 Major depressive disorder, single episode, unspecified; F17.210 Nicotine dependence, cigarettes, uncomplicated; F41.9 Anxiety disorder, unspecified; I08.1 Rheumatic disorders of both mitral and tricuspid valves; I25.10 Atherosclerotic heart disease of native coronary artery without angina pectoris; Z91.19 Patient's noncompliance with other medical treatment and regimen; Z99.2 Dependence on renal dialysis; Z79.899 Other long term (current) drug therapy; Z71.6 Tobacco abuse counseling
CPT/HCPCS: 36415; 71045; 80048; 82962; 83735; 84100; 84484; 93005; 93306; 94640; 96372; 99285; C1893; J0456; J0696; J1650; J2060; J2930; J7050; J7060; J7620

== ENCOUNTER 2019-05-14 16:04 | Inpatient (IN) | payer BC, MEDICARE, OTHER ==
[~2019-05-14] VITALS: Ht 188 cm; Wt 102.7 kg
[~2019-05-14 16:04] MED LIST changes: +CLON0.1T PO; +DIAZ5TAB4 PO; +ESCI20TA43 PO; +HYDR-4001 PO; +HYDR-4135 PO; -HYDR100T26 PO; +MINO2.5T2 PO; +SEVE800T8 PO; -SUCR500T PO; -VARE1TAB21 PO
[2019-05-14] MEDS ORDERED: ASPIRIN 81MG TABLET PO ONE (17:00)
[2019-05-14] MEDS ORDERED: ALPRAZOLAM 0.5 MG TABLET PO ONE (17:00)
[2019-05-14 17:15] LABS: BASOPHILS % 0.6 % (0.0-2.0); EOSINOPHILS % 4.8 % (0.0-5.0); HEMATOCRIT. 32.8 % (42.0-52.0); HEMOGLOBIN. 11.1 g/dL (14.0-18.0); LYMPHOCYTES % 16.9 % (20.0-50.0); MEAN CORPUSCULAR HEMOGLOBIN 31.8 pg (28.0-32.0); MEAN CORPUSCULAR VOLUME 93.8 fL (80.0-94.0); MEAN PLATELET VOLUME 8.1 fl (7.4-10.4); MONOCYTES % 6.2 % (2.0-8.0); NEUTROPHILS % 71.5 % (40.0-76.0); PLATELET 115 x1000/uL (130-400); RED CELL DISTRIBUTION WIDTH 14.5 % (11.6-14.6)
[2019-05-14 17:22] LABS: CHLORIDE 99 mEq/L (98-107)
[2019-05-14] MEDS ORDERED: NITROGLYCERIN 0.4MG TABLET SL SL ONE (17:30)
[2019-05-14] MEDS ORDERED: CLONIDINE 0.2MG TABLET PO NR (18:15)
[2019-05-14] MEDS ORDERED: HYDROCODONE/ACETAMINOPHEN 5/325MG TABLET PO PRN ×2 (20:45→22:45)
[2019-05-14] MEDS ORDERED: MAGNESIUM/ALUMINUM HYDROXIDE/SIMETHICONE 30ML UDC PO PRN (20:45)
[2019-05-14] MEDS ORDERED: MORPHINE SULFATE 2 MG/ML CPJ (NOT FOR IM USE) IV PRN (20:45)
[2019-05-14] MEDS ORDERED: ONDANSETRON HCL 4MG/2ML INJ IV PRN (20:45)
[2019-05-14] MEDS ORDERED: DIAZEPAM 5 MG TABLET PO PRN (20:45)
[2019-05-14 22:00] VITALS: BP 140/70
[2019-05-14] MEDS: HYDRALAZINE HCL 50MG TABLET PO SCH (22:00)
[2019-05-14] MEDS ORDERED: DEXTROSE 50% WATER 50ML SYRINGE IV PRN (22:45)
[2019-05-14] MEDS ORDERED: ACETAMINOPHEN 650MG/20.3ML UDC PO PRN (22:45)
[2019-05-15] MEDS: LORAZEPAM 2MG/ML CPJ IV PRN ×2 (03:32→20:12)
[2019-05-15] MEDS: HYDRALAZINE HCL 50MG TABLET PO SCH ×3 (06:02→21:10)
[2019-05-15] MEDS ORDERED: BLOOD SUGAR DIAGNOSTIC STRIP TEST SCH (07:20)
[2019-05-15] MEDS ORDERED: INSULIN LISPRO 100 UNITS/ML SUBCUT SCH (07:50)
[2019-05-15 07:55] VITALS: BP 142/85
[2019-05-15] MEDS: ENOXAPARIN 40MG/0.4ML SYR SUBCUT SCH ×2 (09:00→09:21)
[2019-05-15] MEDS ORDERED: METFORMIN HCL 500MG TABLET PO SCH (09:00)
[2019-05-15] MEDS: IPRATROPIUM/ALBUTEROL 0.5-3(2.5)MG/3ML NEB NEB SCH ×2 (09:01→15:27)
[2019-05-15] MEDS: FOLIC ACID 1MG TABLET PO SCH (09:32)
[2019-05-15] MEDS: AMLODIPINE 10MG TABLET PO SCH (09:33)
[2019-05-15] MEDS: METOPROLOL TARTRATE 25MG TABLET PO SCH ×2 (09:33→20:26)
[2019-05-15 12:15] VITALS: BP 168/97
[2019-05-15] MEDS ORDERED: ALPRAZOLAM 0.25 MG TABLET PO SCH (13:30)
[2019-05-15] MEDS ORDERED: ALPRAZOLAM 0.25 MG TABLET PO PRN (13:30)
[2019-05-15] MEDS: CLONIDINE 0.1MG TABLET PO SCH ×2 (13:36→21:10)
[2019-05-15 16:06] VITALS: BP 134/74
[2019-05-15] MEDS ORDERED: IPRATROPIUM/ALBUTEROL 0.5-3(2.5)MG/3ML NEB HHN PRN (18:00)
[2019-05-15 20:00] VITALS: BP_SYST 110; BP_SYST 149; BP_DIAS 70; BP_DIAS 73
[2019-05-15] MEDS ORDERED: ACETAMINOPHEN 325MG TABLET PO PRN (20:15)
[2019-05-15] MEDS ORDERED: HYDROCODONE/ACETAMINOPHEN 5/325MG TABLET PO PRN (20:15)
[2019-05-15] MEDS: GUAIFENESIN 600MG ER TABLET PO SCH (20:26)
[2019-05-16] VITALS: BP 160/89
[2019-05-16 04:00] VITALS: BP 136/67
[2019-05-16] MEDS: HYDRALAZINE HCL 50MG TABLET PO SCH (06:00)
[2019-05-16] MEDS: CLONIDINE 0.1MG TABLET PO SCH (06:00)
[2019-05-16 07:26] LABS: BASOPHILS % 0.8 % (0.0-2.0); EOSINOPHILS % 5.3 % (0.0-5.0); HEMATOCRIT. 33.7 % (42.0-52.0); HEMOGLOBIN. 11.5 g/dL (14.0-18.0); LYMPHOCYTES % 17.3 % (20.0-50.0); MEAN CORPUSCULAR HEMOGLOBIN 32.3 pg (28.0-32.0); MEAN CORPUSCULAR VOLUME 94.2 fL (80.0-94.0); MEAN PLATELET VOLUME 8.2 fl (7.4-10.4); MONOCYTES % 5.5 % (2.0-8.0); NEUTROPHILS % 71.1 % (40.0-76.0); PLATELET 122 x1000/uL (130-400); RED BLOOD CELL COUNT 3.57 mill/uL (4.7-6.1); RED CELL DISTRIBUTION WIDTH 15.1 % (11.6-14.6)
[2019-05-16 08:00] VITALS: BP 148/81
[2019-05-16] MEDS: METOPROLOL TARTRATE 25MG TABLET PO SCH (09:00)
[2019-05-16] MEDS ORDERED: ASPIRIN 81MG TABLET PO SCH (09:00)
[2019-05-16] MEDS: AMLODIPINE 10MG TABLET PO SCH (09:00)
[2019-05-16] MEDS: FOLIC ACID 1MG TABLET PO SCH (10:02)
[2019-05-16] MEDS: GUAIFENESIN 600MG ER TABLET PO SCH (10:02)
[2019-05-16] MEDS: ENOXAPARIN 40MG/0.4ML SYR SUBCUT SCH (10:05)
[2019-05-16 12:00] VITALS: BP 154/84
[2019-05-16 16:00] VITALS: BP 166/86
[2019-05-16 17:57] VITALS: BP 166/86
== END 2019-05-16 18:24 | disposition home or self-care (01) | DRG 291 ==
LOC: ER 16:04 → 6WST 18:11 → ENRESERV 20:06
PROVIDERS: ADMIT Internal Medicine Nephrology; ATTEND Internal Medicine Nephrology
DX: I13.2 Hypertensive heart and chronic kidney disease with heart failure and with stage 5 chronic kidney disease, or end stage renal disease (principal); I50.31 Acute diastolic (congestive) heart failure; J96.00 Acute respiratory failure, unspecified whether with hypoxia or hypercapnia; N18.6 End stage renal disease; I16.9 Hypertensive crisis, unspecified; I24.8 Other forms of acute ischemic heart disease; D63.8 Anemia in other chronic diseases classified elsewhere; F41.9 Anxiety disorder, unspecified; I27.20 Pulmonary hypertension, unspecified; F32.9 Major depressive disorder, single episode, unspecified; Z82.3 Family history of stroke; Z82.49 Family history of ischemic heart disease and other diseases of the circulatory system; Z99.2 Dependence on renal dialysis; F17.210 Nicotine dependence, cigarettes, uncomplicated
CPT/HCPCS: 36415; 71045; 80048; 80053; 83880; 84484; 85025; 93005; 93306; 99291; J1650; J2060

== ENCOUNTER 2019-09-27 16:04 | Inpatient (IN) | payer MEDICARE ==
[~2019-09-27] VITALS: Ht 188 cm; Wt 112.5 kg
[2019-09-27] MEDS ORDERED: MORPHINE SULFATE 4 MG/ML CPJ (NOT FOR IM USE) IV STA (16:57)
[2019-09-27] MEDS ORDERED: ONDANSETRON HCL 4MG/2ML INJ IV STA (16:57)
[2019-09-27 17:13] LABS: BASOPHILS % 0.8 % (0.0-2.0); EOSINOPHILS % 7.1 % (0.0-5.0); HEMATOCRIT. 27.9 % (42.0-52.0); HEMOGLOBIN. 9.2 g/dL (14.0-18.0); LYMPHOCYTES % 10.9 % (20.0-50.0); MEAN CORPUSCULAR HEMOGLOBIN 31.1 pg (28.0-32.0); MEAN CORPUSCULAR VOLUME 93.9 fL (80.0-94.0); MEAN PLATELET VOLUME 8.3 fl (7.4-10.4); MONOCYTES % 10.9 % (2.0-8.0); NEUTROPHILS % 70.3 % (40.0-76.0); PLATELET 171 x1000/uL (130-400); RED BLOOD CELL COUNT 2.97 mill/uL (4.7-6.1); RED CELL DISTRIBUTION WIDTH 13.6 % (11.6-14.6)
[2019-09-27 17:19] LABS: CHLORIDE 100 mEq/L (98-107)
[2019-09-27 17:29] LABS: D-DIMER 6.67 mg/L FEU (<0.50); PROTHROMBIN TIME 10.9 sec (9.6-11.0)
[2019-09-27] MEDS ORDERED: CEFTRIAXONE 1 G PREMIX 50 ML IV ONE (18:15)
[2019-09-27] MEDS ORDERED: AZITHROMYCIN 500 MG in DEXT 5% WATER 250 ML IV ONE (18:15)
[2019-09-27] MEDS ORDERED: ACETAMINOPHEN 325MG TABLET PO PRN (19:00)
[2019-09-27] MEDS ORDERED: CLONIDINE 0.1MG TABLET PO PRN (19:00)
[2019-09-27] MEDS ORDERED: ONDANSETRON HCL 4MG/2ML INJ IV PRN (19:00)
[2019-09-27] MEDS ORDERED: IPRATROPIUM/ALBUTEROL 0.5-3(2.5)MG/3ML NEB HHN PRN (19:00)
[2019-09-27] MEDS ORDERED: MORPHINE SULFATE 2 MG/ML CPJ (NOT FOR IM USE) IV PRN (19:00)
[2019-09-27 23:31] LABS: CREATINE KINASE MB FRACTION 2.9 ng/mL (0.5-3.6)
[2019-09-28 04:11] LABS: BASOPHILS % 0.9 % (0.0-2.0); EOSINOPHILS % 1.6 % (0.0-5.0); HEMATOCRIT. 29.1 % (42.0-52.0); HEMOGLOBIN. 9.8 g/dL (14.0-18.0); LYMPHOCYTES % 8.1 % (20.0-50.0); MEAN CORPUSCULAR HEMOGLOBIN 31.9 pg (28.0-32.0); MEAN CORPUSCULAR VOLUME 95.3 fL (80.0-94.0); MEAN PLATELET VOLUME 8.4 fl (7.4-10.4); NEUTROPHILS % 79.4 % (40.0-76.0); PLATELET 248 x1000/uL (130-400); RED BLOOD CELL COUNT 3.05 mill/uL (4.7-6.1); RED CELL DISTRIBUTION WIDTH 13.7 % (11.6-14.6)
[2019-09-28 04:17] LABS: CHLORIDE 98 mEq/L (98-107)
[2019-09-28 04:26] LABS: LDL CHOLESTEROL 39 mg/dL (5-100)
[2019-09-28 04:27] LABS: CREATINE KINASE 179 IU/L (39-308)
[2019-09-28 04:28] LABS: HDL CHOLESTEROL 24 mg/dL (40-59)
[2019-09-28 04:31] LABS: CREATINE KINASE MB FRACTION 4.4 ng/mL (0.5-3.6)
[2019-09-28] MEDS ORDERED: INSULIN REGULAR (HUMULIN R) 300UNITS/3ML SUBCUT NR (06:00)
[2019-09-28] MEDS ORDERED: ALBUTEROL (0.083%) 2.5MG/3ML NEB HHN NR (06:00)
[2019-09-28] MEDS ORDERED: DEXTROSE 50% WATER 50ML SYRINGE IV NR (06:00)
[2019-09-28] MEDS ORDERED: INSULIN REGULAR (HUMULIN R) 300UNITS/3ML IV NR (06:01)
[2019-09-28] MEDS: HEPARIN 5000 UNITS/ML VIAL SUBCUT SCH ×2 (09:00→20:49)
[2019-09-28 10:00] VITALS: BP 125/72
[2019-09-28] MEDS: MINOXIDIL 2.5MG TABLET PO SCH (10:15)
[2019-09-28 12:00] VITALS: BP 125/75
[2019-09-28] MEDS ORDERED: MORPHINE SULFATE 2 MG/ML CPJ (NOT FOR IM USE) IV NR (15:45)
[2019-09-28 16:00] VITALS: BP 139/79
[2019-09-28] MEDS: HYDROMORPHONE HCL/PF 2MG/ML CPJ IV PRN (17:54)
[2019-09-28] MEDS ORDERED: CEFTRIAXONE 1 G PREMIX 50 ML IV SCH (20:00)
[2019-09-28 20:30] VITALS: BP 115/61
[2019-09-28] MEDS: GUAIFENESIN 600MG ER TABLET PO SCH (20:48)
[2019-09-28] MEDS: CEFTRIAXONE 1,000 MG in DEXTROSE 5% WATER 50 ML IV SCH (20:48)
[2019-09-28] MEDS: AZITHROMYCIN 500 MG in DEXT 5% WATER 250 ML IV SCH (20:49)
[2019-09-28] MEDS ORDERED: AZITHROMYCIN 500 MG in DEXT 5% WATER 250 ML IV SCH (21:00)
[2019-09-28] MEDS: HYDROCODONE/ACETAMINOPHEN 5/325MG TABLET PO PRN (22:27)
[2019-09-29] VITALS (7 sets, daily range): BP systolic 107–140; BP diastolic 62–89
[2019-09-29] MEDS: HYDROMORPHONE HCL/PF 2MG/ML CPJ IV PRN ×3 (00:11→19:45)
[2019-09-29] MEDS: IPRATROPIUM/ALBUTEROL 0.5-3(2.5)MG/3ML NEB HHN SCH (01:07)
[2019-09-29] MEDS: HYDROCODONE/ACETAMINOPHEN 5/325MG TABLET PO PRN ×2 (06:11→15:07)
[2019-09-29] MEDS: HEPARIN 5000 UNITS/ML VIAL SUBCUT SCH ×2 (08:49→21:27)
[2019-09-29] MEDS: GUAIFENESIN 600MG ER TABLET PO SCH ×2 (09:00→21:26)
[2019-09-29] MEDS: ASPIRIN 81MG EC TABLET PO SCH (09:00)
[2019-09-29] MEDS: AMLODIPINE 2.5MG TABLET PO SCH (09:00)
[2019-09-29] MEDS: MINOXIDIL 2.5MG TABLET PO SCH (09:00)
[2019-09-29 09:19] LABS: BASOPHILS % 0.5 % (0.0-2.0); EOSINOPHILS % 5.8 % (0.0-5.0); HEMATOCRIT. 24.6 % (42.0-52.0); HEMOGLOBIN. 8.5 g/dL (14.0-18.0); LYMPHOCYTES % 8.3 % (20.0-50.0); MEAN CORPUSCULAR HEMOGLOBIN 32.1 pg (28.0-32.0); MEAN CORPUSCULAR VOLUME 92.8 fL (80.0-94.0); MEAN PLATELET VOLUME 8.5 fl (7.4-10.4); MONOCYTES % 9.1 % (2.0-8.0); NEUTROPHILS % 76.3 % (40.0-76.0); PLATELET 209 x1000/uL (130-400); RED BLOOD CELL COUNT 2.65 mill/uL (4.7-6.1); RED CELL DISTRIBUTION WIDTH 13.5 % (11.6-14.6)
[2019-09-29] MEDS: CEFTRIAXONE 1,000 MG in DEXTROSE 5% WATER 50 ML IV SCH (19:39)
[2019-09-29] MEDS: AZITHROMYCIN 500 MG in DEXT 5% WATER 250 ML IV SCH (21:26)
[2019-09-30] VITALS: BP 137/88
[2019-09-30] MEDS: HYDROCODONE/APAP 7.5/325MG 1 TAB TABLET PO PRN ×4 (00:41→18:21)
[2019-09-30] MEDS: IPRATROPIUM/ALBUTEROL 0.5-3(2.5)MG/3ML NEB HHN SCH ×2 (01:44→20:25)
[2019-09-30 04:00] VITALS: BP 168/86
[2019-09-30 07:05] LABS: BASOPHILS % 0.8 % (0.0-2.0); EOSINOPHILS % 4.4 % (0.0-5.0); HEMATOCRIT. 24.4 % (42.0-52.0); HEMOGLOBIN. 8.3 g/dL (14.0-18.0); LYMPHOCYTES % 9.9 % (20.0-50.0); MEAN CORPUSCULAR HEMOGLOBIN 31.5 pg (28.0-32.0); MEAN CORPUSCULAR VOLUME 93.3 fL (80.0-94.0); MEAN PLATELET VOLUME 8.5 fl (7.4-10.4); MONOCYTES % 7.9 % (2.0-8.0); PLATELET 214 x1000/uL (130-400); RED BLOOD CELL COUNT 2.62 mill/uL (4.7-6.1); RED CELL DISTRIBUTION WIDTH 13.6 % (11.6-14.6)
[2019-09-30] MEDS: HEPARIN 5000 UNITS/ML VIAL SUBCUT SCH ×2 (08:01→21:06)
[2019-09-30 08:11] VITALS: BP 158/89
[2019-09-30] MEDS: AMLODIPINE 2.5MG TABLET PO SCH (08:13)
[2019-09-30] MEDS: GUAIFENESIN 600MG ER TABLET PO SCH ×2 (08:13→21:05)
[2019-09-30] MEDS: MINOXIDIL 2.5MG TABLET PO SCH (08:14)
[2019-09-30 08:34] LABS: INR 1.1; PARTIAL THROMBOPLASTIN TIME 31.9 sec (23.4-31.0); PROTHROMBIN TIME 11.1 sec (9.6-11.0)
[2019-09-30 12:00] VITALS: BP 158/90
[2019-09-30] MEDS: METOPROLOL TARTRATE 50MG TABLET PO SCH (12:29)
[2019-09-30 16:00] VITALS: BP 149/92
[2019-09-30 20:17] VITALS: BP 134/79
[2019-09-30] MEDS: ATORVASTATIN CALCIUM 40MG TABLET PO SCH (21:05)
[2019-09-30] MEDS: CEFTRIAXONE 1,000 MG in DEXTROSE 5% WATER 50 ML IV SCH (21:06)
[2019-09-30] MEDS: AZITHROMYCIN 500 MG TABLET PO SCH (21:09)
[2019-10-01] MEDS: METOPROLOL TARTRATE 50MG TABLET PO SCH ×3 (00:11→20:35)
[2019-10-01] MEDS: HYDROCODONE/APAP 7.5/325MG 1 TAB TABLET PO PRN ×2 (00:53→07:04)
[2019-10-01 00:54] VITALS: BP 135/95
[2019-10-01 04:27] VITALS: BP 153/91
[2019-10-01] MEDS: HYDROMORPHONE HCL/PF 2MG/ML CPJ IV PRN ×3 (06:02→23:20)
[2019-10-01 06:26] LABS: BASOPHILS % 0.6 % (0.0-2.0); EOSINOPHILS % 4.9 % (0.0-5.0); HEMATOCRIT. 24.7 % (42.0-52.0); HEMOGLOBIN. 8.5 g/dL (14.0-18.0); LYMPHOCYTES % 10.4 % (20.0-50.0); MEAN CORPUSCULAR VOLUME 92.9 fL (80.0-94.0); MEAN PLATELET VOLUME 8.4 fl (7.4-10.4); MONOCYTES % 7.7 % (2.0-8.0); NEUTROPHILS % 76.4 % (40.0-76.0); PLATELET 214 x1000/uL (130-400); RED BLOOD CELL COUNT 2.66 mill/uL (4.7-6.1); RED CELL DISTRIBUTION WIDTH 13.4 % (11.6-14.6)
[2019-10-01] MEDS: IPRATROPIUM/ALBUTEROL 0.5-3(2.5)MG/3ML NEB HHN SCH ×3 (07:20→21:40)
[2019-10-01] MEDS ORDERED: SODIUM BICARBONATE 4% (2.4MEQ) 5ML VIAL IV ONE (07:32)
[2019-10-01 08:00] VITALS: BP 148/87
[2019-10-01] MEDS: HEPARIN 5000 UNITS/ML VIAL SUBCUT SCH ×2 (09:00→20:36)
[2019-10-01] MEDS: AMLODIPINE 2.5MG TABLET PO SCH ×2 (09:22→20:37)
[2019-10-01] MEDS: GUAIFENESIN 600MG ER TABLET PO SCH ×2 (09:22→20:37)
[2019-10-01] MEDS: MINOXIDIL 2.5MG TABLET PO SCH (09:23)
[2019-10-01 12:00] VITALS: BP 139/76
[2019-10-01] MEDS: HYDROCODONE/ACETAMINOPHEN 5/325MG TABLET PO PRN ×2 (14:08→20:51)
[2019-10-01] MEDS: DIPHENHYDRAMINE 50MG/ML VIAL IV PRN (15:25)
[2019-10-01 16:00] VITALS: BP 152/87
[2019-10-01 20:00] VITALS: BP 112/72
[2019-10-01] MEDS: CEFTRIAXONE 1,000 MG in DEXTROSE 5% WATER 50 ML IV SCH (20:35)
[2019-10-01] MEDS: ATORVASTATIN CALCIUM 40MG TABLET PO SCH (20:35)
[2019-10-01] MEDS: AZITHROMYCIN 500 MG TABLET PO SCH (20:36)
[2019-10-02 00:16] VITALS: BP 118/59
[2019-10-02] MEDS: IPRATROPIUM/ALBUTEROL 0.5-3(2.5)MG/3ML NEB HHN SCH ×2 (02:14→08:49)
[2019-10-02] MEDS: TRAMADOL 50MG TABLET PO PRN ×3 (03:22→17:01)
[2019-10-02 04:00] VITALS: BP 105/63
[2019-10-02] MEDS: HYDROMORPHONE HCL/PF 2MG/ML CPJ IV PRN ×2 (05:37→11:11)
[2019-10-02 06:08] LABS: BASOPHILS % 0.7 % (0.0-2.0); HEMATOCRIT. 25.5 % (42.0-52.0); HEMOGLOBIN. 8.6 g/dL (14.0-18.0); LYMPHOCYTES % 8.5 % (20.0-50.0); MEAN CORPUSCULAR HEMOGLOBIN 31.4 pg (28.0-32.0); MEAN CORPUSCULAR VOLUME 93.3 fL (80.0-94.0); MEAN PLATELET VOLUME 8.2 fl (7.4-10.4); MONOCYTES % 8.6 % (2.0-8.0); NEUTROPHILS % 76.2 % (40.0-76.0); PLATELET 267 x1000/uL (130-400); RED BLOOD CELL COUNT 2.73 mill/uL (4.7-6.1); RED CELL DISTRIBUTION WIDTH 13.4 % (11.6-14.6)
[2019-10-02 08:20] VITALS: BP 123/68
[2019-10-02] MEDS: GUAIFENESIN 600MG ER TABLET PO SCH (08:30)
[2019-10-02] MEDS: METOPROLOL TARTRATE 50MG TABLET PO SCH (08:30)
[2019-10-02] MEDS: HEPARIN 5000 UNITS/ML VIAL SUBCUT SCH (08:30)
[2019-10-02] MEDS: MINOXIDIL 2.5MG TABLET PO SCH (08:31)
[2019-10-02] MEDS: ASPIRIN 81MG EC TABLET PO SCH (08:32)
[2019-10-02] MEDS: AMLODIPINE 2.5MG TABLET PO SCH (08:32)
[2019-10-02] MEDS ORDERED: HYDR-4001 PO (10:43)
[2019-10-02] MEDS ORDERED: METO-539 PO (10:43)
[2019-10-02] MEDS ORDERED: LIP40 PO (10:43)
[2019-10-02] MEDS ORDERED: AMLO2.5T45 PO (10:43)
[2019-10-02] MEDS: DIPHENHYDRAMINE 50MG/ML VIAL IV PRN (14:23)
[2019-10-02 14:25] VITALS: BP 144/77
[2019-10-02] MEDS: HYDROCODONE/ACETAMINOPHEN 5/325MG TABLET PO PRN (14:25)
[2019-10-02 16:18] VITALS: BP 130/57
[2019-10-02 17:08] VITALS: BP 129/65
== END 2019-10-02 17:30 | disposition home or self-care (01) | DRG 280 ==
LOC: ER 16:15 → EDBEDREQ 17:00 → MICUSO 18:29 → EDBEDREQ 18:36 → 6WST 09-28 07:24
PROVIDERS: ADMIT Internal Medicine; ATTEND Internal Medicine
PROC: 5A1D70Z Performance of Urinary Filtration, Intermittent, Less than 6 Hours Per Day (ICD-10-PCS; 2019-09-29)
PROC: 5A1D70Z Performance of Urinary Filtration, Intermittent, Less than 6 Hours Per Day (ICD-10-PCS; 2019-09-30)
PROC: 0W9B3ZZ Drainage of Left Pleural Cavity, Percutaneous Approach (ICD-10-PCS; principal; 2019-10-01)
PROC: 5A1D70Z Performance of Urinary Filtration, Intermittent, Less than 6 Hours Per Day (ICD-10-PCS; 2019-10-01)
PROC: 5A1D70Z Performance of Urinary Filtration, Intermittent, Less than 6 Hours Per Day (ICD-10-PCS; 2019-10-02)
DX: I21.9 Acute myocardial infarction, unspecified (principal); J96.00 Acute respiratory failure, unspecified whether with hypoxia or hypercapnia; N18.6 End stage renal disease; J18.1 Lobar pneumonia, unspecified organism; I12.0 Hypertensive chronic kidney disease with stage 5 chronic kidney disease or end stage renal disease; J44.0 Chronic obstructive pulmonary disease with (acute) lower respiratory infection; J91.8 Pleural effusion in other conditions classified elsewhere; I16.0 Hypertensive urgency; Z99.2 Dependence on renal dialysis; E83.39 Other disorders of phosphorus metabolism; E83.41 Hypermagnesemia; E87.5 Hyperkalemia; I25.10 Atherosclerotic heart disease of native coronary artery without angina pectoris; Z95.1 Presence of aortocoronary bypass graft; G47.33 Obstructive sleep apnea (adult) (pediatric); F41.9 Anxiety disorder, unspecified; E83.42 Hypomagnesemia; G89.18 Other acute postprocedural pain; D63.8 Anemia in other chronic diseases classified elsewhere; R79.89 Other specified abnormal findings of blood chemistry; E66.9 Obesity, unspecified; F32.9 Major depressive disorder, single episode, unspecified; I27.20 Pulmonary hypertension, unspecified; F17.200 Nicotine dependence, unspecified, uncomplicated; Z85.6 Personal history of leukemia; Z82.49 Family history of ischemic heart disease and other diseases of the circulatory system; Z79.899 Other long term (current) drug therapy; Z87.01 Personal history of pneumonia (recurrent); Z68.31 Body mass index [BMI] 31.0-31.9, adult
CPT/HCPCS: 32555; 36415; 71045; 78580; 80048; 80053; 80061; 82040; 82550; 82553; 82962; 83615; 83735; 83880; 84100; 84443; 84484; 85025; 85379; 88108; 93005; 93970; 94640; 97116; 97162; 99291; J0456; J0696; J1170; J1200; J1644; J1815; J2270; J2405; J3490; J7060

== ENCOUNTER 2019-10-11 12:33 | Emergency (ER) | payer BC, MEDICARE ==
[~2019-10-11] VITALS: Ht 182.9 cm; Wt 100.0 kg
[~2019-10-11 12:33] MED LIST changes: +AMLO2.5T45 PO; -CLON0.1T PO; +LIP40 PO; +METO-539 PO
[2019-10-11 12:38] VITALS: BP 132/78
== END 2019-10-11 13:02 | disposition left against medical advice (07) ==
LOC: ER 12:59
DX: Z53.21 Procedure and treatment not carried out due to patient leaving prior to being seen by health care provider (principal); I12.0 Hypertensive chronic kidney disease with stage 5 chronic kidney disease or end stage renal disease; N18.6 End stage renal disease; Z99.2 Dependence on renal dialysis; F41.9 Anxiety disorder, unspecified; I25.10 Atherosclerotic heart disease of native coronary artery without angina pectoris; Z98.62 Peripheral vascular angioplasty status

== ENCOUNTER 2020-11-17 18:05 | Emergency (ER) | payer BC ==
[~2020-11-17] VITALS: Ht 188 cm; Wt 105.0 kg
[~2020-11-17 18:05] MED LIST changes: +ESCI20TA37 PO; -ESCI20TA43 PO
[2020-11-17 22:52] LABS: BASOPHILS % 1.1 % (0.0-2.0); EOSINOPHILS % 8.2 % (0.0-5.0); HEMATOCRIT. 32.2 % (42.0-52.0); HEMOGLOBIN. 11.1 g/dL (14.0-18.0); MEAN CORPUSCULAR HEMOGLOBIN 32.2 pg (28.0-32.0); MEAN CORPUSCULAR VOLUME 93.5 fL (80.0-94.0); MEAN PLATELET VOLUME 7.9 fl (7.4-10.4); MONOCYTES % 7.3 % (2.0-8.0); NEUTROPHILS % 59.4 % (40.0-76.0); PLATELET 127 x1000/uL (130-400); RED BLOOD CELL COUNT 3.45 mill/uL (4.7-6.1); RED CELL DISTRIBUTION WIDTH 14.4 % (11.6-14.6)
[2020-11-17 22:58] LABS: CHLORIDE 102 mEq/L (98-107)
[2020-11-17 23:40] VITALS: BP 170/100
== END 2020-11-17 23:45 | disposition home or self-care (01) ==
LOC: ER 18:05
DX: I12.0 Hypertensive chronic kidney disease with stage 5 chronic kidney disease or end stage renal disease (principal); N18.6 End stage renal disease; I25.10 Atherosclerotic heart disease of native coronary artery without angina pectoris; F41.9 Anxiety disorder, unspecified; Z91.15 Patient's noncompliance with renal dialysis; Z98.890 Other specified postprocedural states; Z98.61 Coronary angioplasty status; Z99.2 Dependence on renal dialysis
CPT/HCPCS: 36415; 80053; 85025; 93005; 99284